=== PATIENT | female | born 2000 | race Two or more races ===

== ENCOUNTER 2021-05-11 21:56 | Emergency (ER) | payer MEDICAID ==
[~2021-05-11] VITALS: Ht 160 cm; Wt 90.3 kg
[2021-05-12 02:00] VITALS: BP 122/76
[2021-05-12 02:05] LABS: Urine Bacteria NONE SEEN /hpf (None Seen); Urine Blood Negative /uL (Negative); Urine Mucus FEW (None Seen); Urine Specific Gravity 1.032 (1.001-1.035); Urine WBC 24 /hpf (0 - 5)
== END 2021-05-12 02:51 | disposition home or self-care (01) ==
LOC: ER 21:56
DX: N39.0 Urinary tract infection, site not specified (principal)
CPT/HCPCS: 81001

== ENCOUNTER 2022-06-06 12:31 | Emergency (ER) | payer MEDICAID ==
[~2022-06-06] VITALS: Ht 160 cm; Wt 93.5 kg
[2022-06-06 13:00] LABS: Urine Bacteria FEW /hpf (None Seen); Urine Blood Negative /uL (Negative); Urine Mucus FEW (None Seen); Urine WBC 7 /hpf (0 - 5)
[2022-06-06 13:49] VITALS: BP 115/68
[2022-06-06 14:12] LABS: Basophils # (auto) 0.1 10 ^3/uL (0-0.2); Basophils % (auto) 0.9 % (0.0-2.0); Eosinophils # (auto) 0.1 10 ^3/uL (0-0.8); Eosinophils % (auto) 1.1 % (0.0-7.0); Hematocrit 39.3 % (36.0-46.0); Hemoglobin 13.5 g/dL (12.2-16.2); Lymphocytes # (auto) 1.7 10 ^3/uL (0.4-5.4); Lymphocytes % (auto) 22.2 % (10.0-50.0); Mean Corpuscular Hemoglobin 29.6 pg (28.0-32.0); Mean Corpuscular Hgb Conc. 34.3 g/dL (32.0-36.0); Mean Corpuscular Volume 86.4 fL (80.0-100.0); Monocytes # (auto) 0.3 10 ^3/uL (0-1.3); Monocytes % (auto) 3.3 % (0.0-12.0); Neutrophils # (auto) 5.6 10 ^3/uL (1.6-8.6); Neutrophils % (auto) 72.5 % (37.0-80.0); Nucleated Red Blood Cells % 0.2 %; Red Blood Cells 4.55 10^6/uL (4.0-5.20); Red Cell Distribution Width 13.3 % (11.8-14.3); White Blood Cell 7.7 10^3/uL (4.4-10.8)
[2022-06-06 14:30] LABS: Albumin 3.8 g/dL (3.4-5.0); Calcium 9.1 mg/dL (8.5-10.1); Potassium 4.1 mmol/L (3.5-5.1)
[2022-06-06 14:33] LABS: BUN/Creatinine Ratio 13.1; Bilirubin, Total 0.4 mg/dL (0.2-1.0)
[2022-06-06] MEDS ORDERED: ONDANSETRON ODT 4 MG TAB PO ONE (15:00)
[2022-06-06] MEDS ORDERED: cefTRIAXone SOD 1,000 MG VL IM ONE (15:00)
[2022-06-06] MEDS ORDERED: KETOROLAC TROMETH 60MG/2ML VIAL IM ONE (15:00)
[2022-06-06] MEDS ORDERED: ONDA-144 PO (15:30)
[2022-06-06] MEDS ORDERED: BACDST PO (15:30)
[2022-06-06] MEDS ORDERED: DICY10CA PO (15:30)
== END 2022-06-06 15:34 | disposition home or self-care (01) ==
LOC: ER 12:31
DX: N39.0 Urinary tract infection, site not specified (principal); K76.0 Fatty (change of) liver, not elsewhere classified; Z79.899 Other long term (current) drug therapy
CPT/HCPCS: 36415; 76705; 80053; 81001; 81025; 83690; 85025; 96372; 99284; J0696; J1885; Q0162